=== PATIENT | female | born 1995 | race Two or more races ===

== ENCOUNTER → 2022-01-18 | Day surgery (SDC) | payer OTHER ==
[~2022-01-18] MED LIST: INDOCIN 50 MG C50 MG PO; PRENATAL COMPL1 EACH PO
[2022-01-18 07:24] LABS: HEMOGLOBIN 11.2 gm/dl (12.3-15.3); RED BLOOD COUNT 3.65 M/UL (4.00-5.10); WHITE BLOOD COUNT 9.8 K/UL (4.5-11.0)
== END | disposition home or self-care (01) ==
LOC: OR 06:49
PROVIDERS: Obstetrics & Gynecology
DX: O34.32 Maternal care for cervical incompetence, second trimester (principal); Z3A.14 14 weeks gestation of pregnancy
CPT/HCPCS: 81001; 84703; 85025; J0690; J1200; J2001; J2704; J3010